=== PATIENT | male | born 1975 | race Two or more races ===

== ENCOUNTER 2021-09-03 19:06 | Emergency (ER) | payer OTHER ==
[~2021-09-03] VITALS: Ht 188 cm; Wt 145.1 kg
[2021-09-03] MEDS ORDERED: DEXAMETHASONE SOD PHOSPHATE 4 MG INJ IM ONE (19:45)
[2021-09-03] MEDS ORDERED: DEXAMETHASONE SOD PHOSPHATE 10 MG INJ ONE (20:11)
[2021-09-03] MEDS ORDERED: ALBU8.5H8 IH (20:52)
--- NOTE | 2021-09-03 21:06 | NUR ---
Patient discharged to home in stable condition. Written and verbal after care instructions given. Patient verbalizes understanding of instructions. Stressed follow up or return to ER for worsening s/s.
[2021-09-03 21:07] VITALS: BP 150/77
== END 2021-09-03 21:07 | disposition home or self-care (01) ==
LOC: ER 19:13 → EDBD 19:13 → ER 21:07
DX: J20.9 Acute bronchitis, unspecified (principal); Z20.822 Contact with and (suspected) exposure to COVID-19; E66.9 Obesity, unspecified; Z68.41 Body mass index [BMI] 40.0-44.9, adult; F17.211 Nicotine dependence, cigarettes, in remission
CPT/HCPCS: 71045; 87400; 87426; 96372; 99284; J1100; A4663

== ENCOUNTER 2021-09-11 07:36 | Emergency (ER) | payer OTHER ==
[~2021-09-11] VITALS: Ht 188 cm; Wt 145.1 kg
[~2021-09-11 07:36] MED LIST: ALBU8.5H8 IH
[2021-09-11] MEDS ORDERED: AZIT250T PO (08:20)
[2021-09-11] MEDS ORDERED: OMEP40CA21 PO (08:20)
--- NOTE | 2021-09-11 10:14 | NUR ---
Called and spoke with patient to inform him that he is Covid positive and to stress quarantine and concerning symptoms and signs
== END 2021-09-11 08:21 | disposition home or self-care (01) ==
LOC: ER 07:36
DX: U07.1 COVID-19 (principal); J20.8 Acute bronchitis due to other specified organisms; Z87.891 Personal history of nicotine dependence
CPT/HCPCS: 87426; 99283; U0003; A4663

== ENCOUNTER 2022-05-07 10:36 | Emergency (ER) | payer OTHER ==
[~2022-05-07] VITALS: Ht 188 cm; Wt 145.1 kg
[~2022-05-07 10:36] MED LIST changes: +AZIT250T PO; +OMEP40CA21 PO
--- NOTE | 2022-05-07 10:53 | NUR ---
DR RAMIREZ AT BEDSIDE FOR EVALUATION.
[2022-05-07] MEDS ORDERED: KETOROLAC TROMETHAMINE 15 MG INJ ONE (10:58)
[2022-05-07] MEDS ORDERED: ACETAMINOPHEN ES 500 MG TABLET ONE (10:58)
[2022-05-07] MEDS ORDERED: KETOROLAC TROMETHAMINE 15 MG INJ IM ONE (11:00)
[2022-05-07] MEDS ORDERED: ACETAMINOPHEN 325 MG TABLET PO ONE (11:00)
[2022-05-07 11:10] VITALS: BP 147/89
== END 2022-05-07 11:10 | disposition home or self-care (01) ==
LOC: ER 10:36
DX: M25.512 Pain in left shoulder (principal); M54.12 Radiculopathy, cervical region; Z87.891 Personal history of nicotine dependence
CPT/HCPCS: 99283; 96372; J1885; A4663; A9150